=== PATIENT | female | born 1990 | race Caucasian/White ===

== ENCOUNTER 2016-10-06 20:46 | Emergency (ER) | payer MEDICAID, OTHER ==
[2016-10-06] MEDS ORDERED: IOPAMIDOL 300 (61%) 100 ML VIAL IV ONE (20:47)
[2016-10-06] MEDS ORDERED: MORPHINE SULFATE 4 MG/ML SYRINGE ONE (21:29)
[2016-10-06] MEDS ORDERED: LACTATED RINGERS 1,000 ML ONE (21:29)
[2016-10-06] MEDS ORDERED: ONDANSETRON 4 MG/2ML 2 ML VIAL ONE (21:29)
[2016-10-06 21:42] LABS: ABSOLUTE NEUTROPHIL COUNT 5.2 K/mm3 (1.8-7.7); BASO % 0.5 % (0.2-1.0); EOS % 0.6 % (0.9-2.9); HEMATOCRIT 43.4 % (37.0-47.0); HEMOGLOBIN 13.9 gm/l (12.0-16.0); IMM NEUT% 0.3 % (0-1); LYMPH # 0.7 (1.0-4.8); LYMPH % 10.3 % (15-45); MEAN CELL VOLUME 93.5 fl (81.0-99.0); MEAN PLATELET VOLUME 9.9 fl (7.4-10.4); MONO # 0.4 (0.0-0.8); MONO % 6.5 % (4-12); NEUT % 81.8 % (43-75); PLATELET COUNT 186 K/mm3 (130-400); RED CELL DISTRIBUTION WIDTH 12.7 % (11.5-14.5)
[2016-10-06 21:56] LABS: ALB/GLOB RATIO 1.3 (>1.0); CALCIUM 9.2 mg/dL (8.6-10.3)
[2016-10-06] MEDS ORDERED: ACETAMINOPHEN 500 MG TABLET ONE (23:31)
[2016-10-06] MEDS ORDERED: DICYCLOMINE HCL 10 MG CAPSULE ONE (23:32)
--- NOTE | 2016-10-07 09:56 | CT ---
CT ABDOMEN AND PELVIS WITH CONTRAST HISTORY: Nausea and diarrhea x2 days. TECHNIQUE: Following intravenous administration of 100 mL Isovue-300, contiguous axial images were acquired from the lung bases to the ischial tuberosities. Oral contrast was not administered. COMPARISON:None. FINDINGS: LUNG BASES: No gross airspace consolidation or pleural effusion. LIVER: No focal lesion. SPLEEN: No focal lesion. Stomach: Evidence of bariatric surgery. PANCREAS: No focal lesion. ADRENAL GLANDS: No mass effect. KIDNEYS: No focal lesion. No collecting system dilatation. GALLBLADDER: Surgically absent. BOWEL: Postsurgical change at the left mid abdomen. No abnormal small bowel dilatation. Wall enhancement of the colon with fluid content. Minor enhancement of lower small bowel loops. APPENDIX: Grossly unremarkable. PELVIC ORGANS: No gross mass effect. FREE FLUID: No gross free fluid identified. ABDOMINOPELVIC LYMPH NODES: Increased number of small mesenteric lymph nodes. ABDOMINAL AORTA: Normal caliber. OSSEOUS STRUCTURES: No grossly destructive lesions. IMPRESSION: 1. Nonobstructive appearance of bowel. 2. Findings compatible with enterocolitis and mesenteric adenitis. 3. Normal appendix. 4. Evidence of prior bariatric surgery and cholecystectomy. Preliminary report relayed to the Emergency Medicine medical service by Dr. Westbrook on 10/06/2016 at 2253 hours.
== END 2016-10-06 23:38 | disposition home or self-care (01) ==
LOC: ED 20:46
DX: R10.13 Epigastric pain (principal); R19.7 Diarrhea, unspecified; R11.0 Nausea; Z98.84 Bariatric surgery status